=== PATIENT | female | born 1980 | race Asian ===

== ENCOUNTER → 2024-09-30 | Day surgery (SDC) | payer OTHER ==
[2024-09-29 12:07] LABS: BASOPHILS % 0.4 % (0.0-1.0); EOSINOPHILS # (AUTO) 0.2 (0.0-0.4); EOSINOPHILS % 1.8 % (0.0-6.0); HEMATOCRIT 38.4 % (34.2-44.1); LYMPHOCYTES # (AUTO) 1.7 (1.0-3.2); LYMPHOCYTES % 17.4 % (18.0-39.1); MEAN CORPUSCULAR HEMOGLOBIN 31.3 pg (28-32); MEAN CORPUSCULAR HGB CONC 33.9 g/dL (31-35); MEAN CORPUSCULAR VOLUME 92.5 fL (81-99); MONOCYTES # (AUTO) 0.8 (0.2-0.8); MONOCYTES % 7.8 % (4.4-11.3); NEUTROPHILS # (AUTO) 7.1 (2.1-6.9); NEUTROPHILS % 72.1 % (38.7-80.0); PLATELET COUNT 326 x10e3/uL (140-360); RED BLOOD COUNT 4.15 x10e6/uL (3.6-5.1); RED CELL DISTRIBUTION WIDTH 12.7 % (11.7-14.4); WHITE BLOOD COUNT 9.88 x10e3/uL (4.8-10.8)
[2024-09-29 12:15] LABS: BILIRUBIN,URINE NEGATIVE (NEGATIVE); CLARITY,URINE CLEAR (CLEAR); COLOR,URINE YELLOW (YELLOW); GLUCOSE, URINE NEGATIVE (NEGATIVE); KETONES,URINE NEGATIVE (NEGATIVE); LEUKOCYTE ESTERASE ,URINE TRACE (NEGATIVE); NITRITE,URINE NEGATIVE (NEGATIVE); PH,URINE 6 (5 - 7); PROTEIN,URINE DIPSTICK NEGATIVE (NEGATIVE); URINE UROBILINOGEN 0.2 mg/dL (0.2 - 1)
[2024-09-29 12:44] LABS: ALBUMIN 4.5 g/dL (3.5-5.0); ALBUMIN/GLOBULIN RATIO 1.3 (0.8-2.0); ANION GAP 12.3 mmol/L (8-16); BILIRUBIN,TOTAL 0.8 mg/dL (0.2-1.2); CREATININE, SERUM 0.9 mg/dL (0.57-1.11); TOTAL PROTEIN 8.1 g/dL (6.5-8.1)
[2024-09-29 12:57] LABS: POTASSIUM 3.3 mmol/L (3.5-5.1)
[~2024-09-30] MED LIST: ACETAMINOPHEN 1000 MG/100 ML 0 ML IV ONE; ACETAMINOPHEN 1000 MG/100 ML 100 ML IV ONE; FENTANYL CITRATE/PF 100MCG/2 ML INJ ONE; LIDOCAINE HCL 2% LOCAL INJ 5 ML SDV VIAL INJ ONE; METOCLOPRAMIDE HCL 10 MG/2ML VIAL ONE; ONDANSETRON HCL INJ 2MG/ML 2ML 2 MG/ML VIAL ONE; PANTOPRAZOLE SO40 MG PO; PHENYLEPHRINE HCL 1% 10 MG/ML VIAL ONE; PROPOFOL IV EMULSION 10 MG/ML 20 ML VIAL ONE; ROCURONIUM BROMIDE 0 ML IV ONE; ROCURONIUM BROMIDE 1 ML IV ONE; SEVOFLURANE INHAL SOLN 250 ML PEN BTL ONE; SODIUM CHLORIDE 0.9% 0 ML ONE; SUCCINYLCHOLINE CHLORIDE 20 MG/ML 10ML VIAL ONE; SUCRALFATE1 GM PO; SUGAMMADEX SODIUM 200 MG/2 ML VIAL IV ONE
[2024-09-30] MEDS: LACTATED RINGER'S 1,000 ML ONE (07:20)
[2024-09-30 10:45] VITALS: TEMP 97.2
[2024-09-30] MEDS: FENTANYL CITRATE/PF 100MCG/2 ML INJ IV ONE ×2 (11:05→11:15)
[2024-09-30] MEDS: ONDANSETRON HCL INJ 2MG/ML 2ML 2 MG/ML VIAL IV ONE (11:30)
[2024-09-30] MEDS: METOCLOPRAMIDE HCL 10 MG/2ML VIAL IV ONE (11:56)
[2024-09-30 12:10] VITALS: BP 149/79; PULSE 77; RESP 16; O2SAT 98
== END | disposition home or self-care (01) ==
LOC: OR 06:30
PROVIDERS: ATTEND Surgery
DX: K80.10 Calculus of gallbladder with chronic cholecystitis without obstruction (principal); K82.8 Other specified diseases of gallbladder; K21.9 Gastro-esophageal reflux disease without esophagitis; N20.0 Calculus of kidney; Z01.810 Encounter for preprocedural cardiovascular examination; Z01.812 Encounter for preprocedural laboratory examination
CPT/HCPCS: 36415; 47562; 80053; 81003; 81025; 85025; 88304; 93005; C1766; J0131; J0330; J2003; J2405; J2704; J2765; J3010; J7121; J2371; J7050